=== PATIENT | female | born 1980 | race Caucasian/White ===

== ENCOUNTER 2022-10-08 09:17 | Emergency (ER) | payer OTHER ==
[~2022-10-08] VITALS: Ht 157.5 cm; Wt 58.8 kg
[2022-10-08 13:03] LABS: BASO # 0.1 10^3/uL (0.0-0.2); EOS # 0.1 10^3/uL (0.0-0.5); EOS % 2.1 % (0.0-3.0); HEMATOCRIT 38.7 % (36.0-47.0); HEMOGLOBIN 12.8 g/dl (12.0-15.5); LYMPH # 1.7 10^3/uL (1.5-5.0); LYMPH % 32.7 % (24.0-44.0); MEAN CORPUSCULAR HEMOGLOBIN 30.5 pg (27.0-33.0); MEAN CORPUSCULAR HGB CONC 33.1 g/dl (32.0-36.5); MEAN CORPUSCULAR VOLUME 92.1 fl (80.0-96.0); MONO # 0.3 10^3/uL (0.0-0.8); MONO % 6.5 % (2.0-8.0); NEUTROPHILS % 57.3 % (36.0-66.0); PLATELET COUNT, AUTOMATED 218 10^3/uL (150-450); WHITE BLOOD COUNT 5.3 10^3/uL (4.0-10.0)
[2022-10-08 13:25] LABS: LIPASE 49 U/L (12-53)
[2022-10-08 13:27] LABS: BILIRUBIN,DIRECT 0.2 MG/DL (<0.4)
[2022-10-08 13:28] LABS: ALBUMIN 3.7 G/DL (3.2-5.2); ALKALINE PHOSPHATASE 44 U/L (46-116); ALT/SGPT 20 U/L (7.0-40); AST/SGOT 24 U/L (<34); BILIRUBIN,TOTAL 0.7 MG/DL (0.3-1.2); BLOOD UREA NITROGEN 10 MG/DL (9-23); CARBON DIOXIDE LEVEL 24 MMOL/L (20-31); CHLORIDE LEVEL 108 MMOL/L (98-107); CREATININE FOR GFR 0.69 MG/DL (0.55-1.30); GLOMERULAR FILTRATION RATE > 60.0 (>58); GLUCOSE, FASTING 145 MG/DL (60-100); POTASSIUM SERUM 3.7 MMOL/L (3.5-5.1); SODIUM LEVEL 140 MMOL/L (136-145); TOTAL PROTEIN 6.4 G/DL (5.7-8.2)
[2022-10-08 13:30] VITALS: BP 149/70
[2022-10-08 13:30] LABS: THYROID STIMULATING HORMONE 0.779 uIU/ML (0.55-4.78)
[2022-10-08 13:34] LABS: FREE T4 1.27 NG/DL (0.89-1.76)
== END 2022-10-08 13:50 | disposition home or self-care (01) ==
LOC: M ED 09:17
DX: R07.9 Chest pain, unspecified (principal); F43.0 Acute stress reaction; I10 Essential (primary) hypertension; F17.200 Nicotine dependence, unspecified, uncomplicated